=== PATIENT | male | born 1990 | race Caucasian/White ===

== ENCOUNTER 2019-02-19 21:43 | Emergency (ER) | payer SELFPAY ==
[~2019-02-19] VITALS: Ht 190.5 cm; Wt 152.6 kg
--- NOTE | 2019-02-19 21:44 | NUR ---
PT SEEN BY [employer] HELPER FOR ASTHMA EXACERBATION. MARIANA STATED WHEEZING THROUGHOUT WITH MODERATE WOB. 3 ALB TX AND 2 DUONEBS GIVEN. 97%RA, 100% ON NEB PER MARIANA. PT AMA'D FROM [place] AND HAD FAMILY DRIVE HIM HERE.
[2019-02-19 21:52] VITALS: BP 140/89
--- NOTE | 2019-02-19 22:19 | NUR ---
PT PACING IN HALLWAY, DC INSTRUCTIONS AND SCRIPT TO PT
== END 2019-02-19 22:28 | disposition home or self-care (01) ==
LOC: ED 22:10
DX: J45.901 Unspecified asthma with (acute) exacerbation (principal); F17.200 Nicotine dependence, unspecified, uncomplicated
CPT/HCPCS: 93005; 99283; J7512